=== PATIENT | male | born 1975 | race Caucasian/White ===

== ENCOUNTER 2021-08-22 11:09 | Emergency (ER) | payer MEDICAID, SELFPAY ==
[2021-08-22 11:09] VITALS: BP 146/96; PULSE 68; RESP 16; TEMP 37; O2SAT 97; BMI 25.4
--- NOTE | 2021-08-22 11:57 | HMH.EDUTC ---
[facility] [place] Disposition Clinical Impression: Pain, dental Disposition: Home, Self-Care Condition on Discharge: Good Instructions: DI for Chronic Pain -- Adult, DI for Dental Pain, Amoxicillin, Ibuprofen Additional Instructions: Make sure to follow up with Dentist tomorrow as scheduled Take medication as prescribed Follow up with Family Doctor if needed Return if needed straight to ER if any life threatening symptoms Prescriptions: Ibuprofen [Ibuprofen 600mg Tablet] 600 mg PO Q6HP PRN #20 tab PRN Reason: Moderate Pain Transmission Status[facility] Amoxicillin [Amoxicillin 500mg Cap] 500 mg PO TID #21 cap Transmission Status: Pending to [facility] Referrals: Provider,Referral, [Primary Care Provider] - Medical Decision Making - Av Inquiry Pt receiving controlled substance: No Av was queried for this patient: No Vital Signs: 08/22/21 11:09 Temperature 98.6 F Temperature Source Oral Pulse Rate [Right Radial] 68 Respiratory Rate 16 Blood Pressure [Right Arm] 146/96 H Blood Pressure Mean [Right Arm] 112 02 Sat by Pulse Oximetry 97 [facility] [place] HPI - General Stated complaint: rt side oral pain Time Seen by Provider: 08/22/21 11:57 Mode of Arrival: Ambulatory Source of Information: Patient Limitations: No Limitations Description of Symptoms (Recalled from Triage Doc. by RN): C/O toothache x3 days HEENT Symptoms (Recalled from RN notes): Yes (toothache) Resp Symptoms (Recalled from RN notes): No Skin Symptoms (Recalled from RN notes): No MS Symptoms (Recalled from RN notes): No Functional Status (Recalled from RN notes): n/a - History of Present Illness Provider Complaint: Patient states that he has been having dental pain and swelling in his right upper gum area States that he has appointment with Dentist tomorrow but pain is worse today and he had to come in and get something to help get him through - Related Data Previous Rx's Medication Instructions Recorded sulfamethoxazole 800 1 tab PO Q12H 10 Days #20 tab 12/18/20 mg-trimethoprim 160 mg tablet Amoxicillin [Amoxicillin 500mg 500 mg PO TID #21 cap 08/22/21 Cap] Ibuprofen [Ibuprofen 600mg 600 mg PO Q6HP PRN #20 tab 08/22/21 Tablet] Allergies Allergy/AdvReac Type Severity Reaction Status Date / Time No Known Allergies Allergy Verified 12/18/20 15:07 - Worker's Comp Is this a Worker's Comp case?: No [facility] History - Hepatitis A Screen Drug use history?: No High risk sexual behaviors?: No History of sexually transmitted infection?: No Currently employed?: No Childcare worker?: No Do you have indoor plumbing?: Yes Do you have electricity?: Yes Attestation statement:: This patient has been screened for Hepatitis A risk factors. I have reviewed the patient's past medical history: Yes Other Surgeries: Yes: No Previous Surgery - Social History Smoking Status: Never smoker Alcohol Intake: never Substance Use Type: denies use Occupational Status: unemployed Housing: house Household Members: family Family Hx:: Cancer ROS Obtained: Yes All systems reviewed & no additional complaints, Yes Systems reviewed as appropriate & no additional complaints - Constitutional Constitutional: Reports system reviewed and no additional complaints, except as docu, Denies body ache, Denies chills, Denies fever(s) - ENT Ears, Nose, Mouth, and Throat: Reports system reviewed and no additional complaints, except as docu, Reports dental pain - Cardiovascular Cardiovascular: Reports system reviewed and no additional complaints, except as docu - Respiratory Respiratory: Reports system reviewed and no additional complaints, except as docu - Gastrointestinal Gastrointestingal: Reports: system reviewed and no additional complaints, except as docu Physical Exam - General General appearance: alert, in no apparent distress - Expanded ENT Exam Teeth exam: Present: dental caries, oth
[2021-08-22 12:08] VITALS: BP 146/96; PULSE 68; RESP 16; TEMP 37; O2SAT 97
== END 2021-08-22 12:09 | disposition home or self-care (01) ==
PROVIDERS: Emergency Provider Nurse Practitioner
DX: K02.9 Dental caries, unspecified (principal); K08.89 Other specified disorders of teeth and supporting structures
CPT/HCPCS: 99202; G0463

== ENCOUNTER 2021-12-29 10:48 | Emergency (ER) | payer MEDICAID, SELFPAY ==
[2021-12-29 11:45] VITALS: BP 113/76; PULSE 103; RESP 16; TEMP 36.8; O2SAT 98; BMI 28.2
--- NOTE | 2021-12-29 12:04 | HMH.EDUTC ---
[facility] [place] Disposition Clinical Impression: Dental abscess, Pain, dental, Jaw pain Disposition: Home, Self-Care Condition on Discharge: Good Instructions: Tooth Abscess, DI for Tooth Abscess Additional Instructions: Drink plenty of fluids. Take the ibuprofen for pain. Take the medications as directed. Follow up with your regular doctor. You have to follow up with your dentist to get this completely resolved. GO TO THE ER FOR ANY WORSENING SYMPTOMS Prescriptions: Ibuprofen [Ibuprofen 800mg Tablet] 800 mg PO Q8HP PRN #30 tab PRN Reason: Moderate Pain Transmission Status: Received by [facility] Amoxicillin/Potassium Clav [Augmentin 875-125 Tablet] 1 tab PO Q12H 10 Days #20 tab Transmission Status: Received by [facility] Referrals: Teetee Downs PA [Primary Care Provider] - Time of Disposition: 12:21 Medical Decision Making - Medical Records Medical records reviewed: No: I reviewed the patient's medical records. - Av Inquiry Pt receiving controlled substance: No Vital Signs: 12/29/21 11:45 Temperature 98.3 F Temperature Source Oral Pulse Rate [Left] 103 H Respiratory Rate 16 Blood Pressure [Right Arm] 113/76 Blood Pressure Mean [Right Arm] 88 02 Sat by Pulse Oximetry 98 Orders (Tests/Meds): ED MEDICATIONS Discontinued Medications Generic Name Dose Route Start Last Admin Trade Name Freq PRN Reason Stop Dose Admin Benzocaine/Butamben/Tetracaine HCl 0 gm 12/29/21 13:05 12/29/21 13:03 Tetracaine/Benzocaine/Butamben 56 Gm [place] TP 12/29/21 13:06 25 gm NEEDED ONE Administration Ceftriaxone Sodium 1 gm 12/29/21 12:16 12/29/21 13:01 Ceftriaxone 1gm Vial IM 12/29/21 12:17 1 gm ONCE ONE Administration Lidocaine HCl 0 ml 12/29/21 12:16 12/29/21 13:02 Lidocaine 1% 5ml Pf Vial IM 12/29/21 12:17 2 ml ONCE ONE Administration Lidocaine HCl 15 ml 12/29/21 13:02 12/29/21 13:04 Lidocaine 2% Viscous Patricia 15ml Udc PO 12/29/21 13:03 15 ml ONCE ONE Administration [facility] [place] HPI - General Stated complaint: oral pain Time Seen by Provider: 12/29/21 12:04 Mode of Arrival: Ambulatory Source of Information: Patient Limitations: No Limitations Description of Symptoms (Recalled from Triage Doc. by RN): pt c/o an abcessed tooth on his upper L jaw. pain started 3-4 days ago. HEENT Symptoms (Recalled from RN notes): Yes Resp Symptoms (Recalled from RN notes): No Skin Symptoms (Recalled from RN notes): No MS Symptoms (Recalled from RN notes): No Functional Status (Recalled from RN notes): wnl - History of Present Illness Provider Complaint: He states that he has had left upper jaw dental pain for the past 4 days. He has an appointment with his dentist, but he is having worsening pain and swelling around the tooth. He denies any fever or chills. - Related Data Previous Rx's Medication Instructions Recorded sulfamethoxazole 800 1 tab PO Q12H 10 Days #20 tab 12/18/20 mg-trimethoprim 160 mg tablet Amoxicillin [Amoxicillin 500mg 500 mg PO TID #21 cap 08/22/21 Cap] Ibuprofen [Ibuprofen 600mg 600 mg PO Q6HP PRN #20 tab 08/22/21 Tablet] Amoxicillin/Potassium Clav 1 tab PO Q12H 10 Days #20 tab 12/29/21 [Augmentin 875-125 Tablet] Ibuprofen [Ibuprofen 800mg 800 mg PO Q8HP PRN #30 tab 12/29/21 Tablet] Allergies Allergy/AdvReac Type Severity Reaction Status Date / Time No Known Allergies Allergy Verified 12/18/20 15:07 - Worker's Comp Is this a Worker's Comp case?: No [facility] History - Hepatitis A Screen Drug use history?: No High risk sexual behaviors?: No History of sexually transmitted infection?: No Currently employed?: No Childcare worker?: No Do you have indoor plumbing?: Yes Do you have electricity?: Yes Attestation statement:: This patient has been screened for Hepatitis A risk factors. I have reviewed the patient's past medical history: Yes Other Surgeries: Yes: No
[2021-12-29 13:52] VITALS: BP 113/76; PULSE 103; RESP 16; TEMP 36.8
== END 2021-12-29 13:52 | disposition home or self-care (01) ==
PROVIDERS: Emergency Provider Nurse Practitioner Family; PCP Physician Assistant
DX: K04.7 Periapical abscess without sinus (principal)
CPT/HCPCS: 96372; 99202; G0463; J0696

== ENCOUNTER 2023-02-19 19:55 | Emergency (ER) | payer MEDICAID, SELFPAY ==
[2023-02-19 19:56] VITALS: BP 181/83; PULSE 114; RESP 23; TEMP 37.3; O2SAT 100; BMI 26.6
--- NOTE | 2023-02-19 19:56 | ECG_ITS ---
APPROVED REPORT Exam: Resting ECG HR:107 bpm ECG Measurements Heart Rate 107 AXES IA 161 P 67 QRSd 84 QRS 69 QT 323 T 58 QTc 386 Conclusion SINUS TACHYCARDIA ABNORMAL RHYTHM ECG UNCONFIRMED REPORT Electronically signed by : Chuck Macias MD 02/20/2023 17:02:08
--- NOTE | 2023-02-19 20:15 | XR_ITS ---
PROCEDURE INFORMATION: Exam: XR Chest Exam date and time: 02/19/2023 8:17 PM Age: 48 years old Clinical indication: Sternal or substernal pain; Additional info: Chest pain work up TECHNIQUE: Imaging protocol: Radiologic exam of the chest. Views: 2 views. COMPARISON: No relevant prior studies available. FINDINGS: Lungs: Unremarkable. No consolidation. Pleural spaces: Unremarkable. No pleural effusion. No pneumothorax. Heart/Mediastinum: Unremarkable. No cardiomegaly. Bones/joints: Unremarkable. IMPRESSION: No acute findings.
[2023-02-19 20:24] LABS: Chloride 104 mmol/L (98-107); Potassium 3.3 mmoL/L (3.5-5.1); Sodium 141 mmol/L (136-145)
[2023-02-19 20:26] LABS: Basophils # 0.1 K/mm3 (0-0.2); Bilirubin,Unconjugated 0.4 mg/dL (0.0-1.1); Blood Urea Nitrogen 20 mg/dl (9-20); Creatinine Clearance Estimated 79 mL/min (50-200); Eosinophils # 0.1 K/mm3 (0.0-0.4); Eosinophils % 2.1 % (0.1-12.0); Estimated Glomerular Filt Rate 65 ml/min (>60); GFR (African American) 79 ML/MIN (>60); Hematocrit 46.7 % (42.0-52.0); Hemoglobin 15.5 g/dL (14.1-18.0); Lymphocytes # 1.6 K/mm3 (0.7-4.5); Lymphocytes % 23.5 % (10-50); Mean Corpuscular HGB Conc 33.2 g/dL (31.8-35.4); Mean Corpuscular Hemoglobin 31.6 pg (27.0-31.2); Mean Corpuscular Volume 95.1 fl (80-94); Mean Platelet Volume 7.6 fl (7.4-10.4); Monocytes # 0.5 K/mm3 (0.1-1.0); Monocytes % 7.4 % (1.7-9.3); Neutrophils # 4.4 K/mm3 (1.8-7.8); Platelet Count 335 K/mm3 (142-424); Red Blood Count 4.91 M/mm3 (4.60-6.20); Red Cell Distribution Width 13.2 % (11.5-17.5); White Blood Count 6.6 K/mm3 (4.8-10.8)
--- NOTE | 2023-02-19 20:26 | PC.NURSE ---
Pt gone to RAD via wheelchair
[2023-02-19 20:27] LABS: Alanine Aminotransferase 28 U/L (12-78); Albumin Level 4.6 g/dl (3.5-5.0); Alkaline Phosphatase 85 U/L (38-126); Anion Gap 12.3 mEq/L (5-15); Aspartate Amino Transferase 38 U/L (17-59); Bilirubin,Direct 0.1 mg/dl (0.0-0.4); Bilirubin,Indirect 0.3 mg/dL (0.0-0.9); Bilirubin,Total 0.4 mg/dl (0.2-1.3); Calcium 8.7 mg/dl (8.4-10.2); Carbon Dioxide 28 mmol/L (22.0-30.0); Glucose 106 mg/dl (74-100); Total Protein,Serum 7.2 g/dl (6.3-8.2)
[2023-02-19 20:28] LABS: Magnesium 2.1 mg/dl (1.6-2.3)
--- NOTE | 2023-02-19 20:30 | PC.NURSE ---
Pt back from RAD
[2023-02-19 20:32] LABS: C-Reactive Protein 6.6 mg/L (0-4)
[2023-02-19 20:41] LABS: Troponin I < 0.01 ng/ml (0.00-0.034)
--- NOTE | 2023-02-19 20:44 | HMH.EDCP ---
Discharge Plan Disposition Patient Disposition: Home, Self-Care Chief Complaint: Chest Pain Prescriptions Prescriptions: No Action sulfamethoxazole-trimethoprim 800-160 mg tablet 1 tab PO Q12H 10 Days Qty: 20 0RF amoxicillin 500 MG capsule 500 mg PO TID Qty: 21 0RF ibuprofen 600 MG tablet 600 mg PO Q6HP PRN (Reason: Moderate Pain) Qty: 20 0RF ibuprofen 800 MG tablet 800 mg PO Q8HP PRN (Reason: Moderate Pain) Qty: 30 0RF amoxicillin-pot clavulanate 1 EACH tablet 1 tab PO Q12H 10 Days Qty: 20 0RF Referrals Follow up/Referrals: Teetee Downs PA [Primary Care Provider] - See instructions Clinical Impressions Clinical Impression: Cervical radicular pain Instructions Patient Instructions: DI for Cervical Radiculopathy Discharge ED Provider: Joseline (ED)Burton Chest Pain HPI General Chief Complaint: Chest Pain Stated Complaint: Chest Pain Time Seen by Provider: 02/19/23 20:44 Mode of Arrival: Family Vehicle Source of Information: Patient and Medical Record Limitations: No Limitations Description of Symptoms (Recalled from ER Triage Doc. by RN): Pt c/o L sided neck pain that radiates down his left arm. States it began last night while resting. 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 However, he began to be worried after he thought about how his friend because of a heart attack and had the same symtoms. His pain is reproducible when turning his neck far to the right. He denies any n/v/d. Denies any SOA or dyspnea. History of Present Illness HPI narrative: pt with lt sided neck pain with rad to scapular area and to lt upper ext - has had prev but worse over the last few days - no tob use and no diabetes - no known card disease MD complaint: other Onset (ago): day(s) Duration: intermittent Pain location: other (neck pain) Quality: sharp Pain radiation: LUE Risk Factors for CAD: Family Hx of CAD Treatments prior to or on arrival for Cardiac Chest Pain: none DOM Score for Non-Stemi Age of Patient: 40-49 years old Heart Rate: 90-109 bpm Systolic Blood Pressure: 100-119 mmHg Serum Creatinine: 1.20-1.59 mg/dl CHF [place] Class: I-No CHF Other Risk Factors: None Non-Stemi Risk Score: 93 Risk Stratification: 1-108 = Low Risk Related Data Previous Rx's Medication Instructions Recorded sulfamethoxazole 800 1 tab PO Q12H skin infection 10 12/18/20 mg-trimethoprim 160 mg tablet days #20 tabs amoxicillin 500 mg capsule 500 mg PO TID #21 caps 08/22/21 ibuprofen 600 mg tablet 600 mg PO Q6HP PRN Moderate Pain 08/22/21 #20 tabs amoxicillin 875 mg-potassium 1 tab PO Q12H 10 days #20 tabs 12/29/21 clavulanate 125 mg tablet ibuprofen 800 mg tablet 800 mg PO Q8HP PRN Moderate Pain 12/29/21 #30 tabs Allergies Allergy/AdvReac Type Severity Reaction Status Date / Time No Known Allergies Allergy Verified 12/18/20 15:07 [facility] Disclaimer: The information contained in this section may have been updated after the patient was seen, as this information can be updated by other users. Social History Smoking Status: Former smoker alcohol intake: never substance use type: denies use current occupational status: unemployed Travel in the last 8 weeks: None household members: family housing: house ROS Obtained: Yes All systems reviewed & no additional complaints except as documented Physical Exam General General appearance: alert Head Head exam: normocephalic Eye Eye exam: Present PERRL and EOMI ENT ENT exam: Present mucous membranes moist Neck Neck exam: Present trachea midline and tenderness; Absent lymphadenopathy Respiratory Respiratory exam: Absent respiratory distress Cardiovascular Cardiovascular exam: Present regular rate Abdominal Exam Abdominal exam: Present soft Extremities Exam Extremities exam: Present full ROM Neurological Exam Neurological exam: Present alert, oriented X3 and CN II-XII
[2023-02-19 20:52] LABS: Erythrocyte Sedimentation Rate 9 mm/hr (0-15)
[2023-02-19 21:00] VITALS: BP 118/78; PULSE 96; RESP 15; O2SAT 96
--- NOTE | 2023-02-19 21:13 | PC.NURSE ---
Rounded on pt. Pt advised his pain was still a 05/25. RN notified.
--- NOTE | 2023-02-19 21:20 | PC.NURSE ---
Dr. Trevizo at
[2023-02-19 21:24] VITALS: BP 120/80; PULSE 89; RESP 18; TEMP 36.6; O2SAT 98
[2023-02-19 22:02] LABS: Procalcitonin 0.065 ng/mL (0.0-2.0)
== END 2023-02-19 21:30 | disposition home or self-care (01) ==
PROVIDERS: Emergency Provider Emergency Medicine; PCP Physician Assistant
DX: R07.9 Chest pain, unspecified (principal); M54.12 Radiculopathy, cervical region
CPT/HCPCS: 71046; 80048; 80076; 83735; 84145; 84484; 85025; 85651; 86140; 93005; 96360; 96374; 99285

== ENCOUNTER 2023-04-13 08:59 | Emergency (ER) | payer MEDICAID, SELFPAY ==
--- NOTE | 2023-04-13 09:51 | EXP.UTC ---
Discharge Plan Disposition Patient Disposition: Home, Self-Care Condition: Good Prescriptions Prescriptions: New ciprofloxacin HCl 0.3 % drops See Rx Instructions .ROUTE .COMPLEX Qty: 5 0RF Rx Instructions: put 1 drp in left eye every 2hr x2days; then 4 times/day x5days Referrals Follow up/Referrals: Teetee Downs PA [Primary Care Provider] - See instructions Activity Restrictions/Add. Instructions Additional Instructions/Restrictions: Use the eye drops as directed. Apply warm wet compresses three or four times per day. Follow up with your regular doctor. GO TO THE ER FOR ANY WORSENING SYMPTOMS OR CONCERNS Clinical Impressions Clinical Impression: Hordeolum externum left upper eyelid Instructions Patient Instructions: How to Instill Eye Drops, Hordeolum, DI for Hordeolum Discharge ED Provider: Iker Harper Fern [facility] HPI General Stated complaint: Possible LT eye stye Time Seen by Provider: 04/13/23 09:51 History of Present Illness Provider Complaint: he states that he has had left eye upper eye lid swelling for the past 2 days. He denies any injury or foreign body. Related Data Previous Rx's Medication Instructions Recorded ciprofloxacin HCl 0.3 % eye drops See Rx Instructions ophthalmic 04/13/23 (eye) .COMPLEX #5 mL Allergies Allergy/AdvReac Type Severity Reaction Status Date / Time No Known Allergies Allergy Verified 04/13/23 10:00 [facility] Disclaimer: The information contained in this section may have been updated after the patient was seen, as this information can be updated by other users. Medical History No significant past medical history Surgical History No significant past surgical history Family History Other No significant family history Social History Smoking Status: Former smoker alcohol intake: never substance use type: denies use current occupational status: unemployed Travel in the last 8 weeks: None household members: family housing: house ROS Obtained: Yes All systems reviewed & no additional complaints except as documented Constitutional Constitutional: Denies chills and Denies fever(s) Eyes Eyes: Reports as per HPI, Denies change in vision and Reports eye discharge ENT Ears, Nose, Mouth, and Throat: Denies dizziness, Denies otalgia and Denies sore throat Cardiovascular Cardiovascular: Denies chest pain Respiratory Respiratory: Denies shortness of breath, Denies chest congestion, Denies cough, Denies stridor and Denies wheezing Gastrointestinal Gastrointestingal: Denies nausea or vomiting Musculoskeletal Musculoskeletal: Reports system reviewed and no additional complaints, except as documented and Denies arthralgias Integumentary/Breasts Skin/Breast: Denies rash Neurologic Neurologic: Denies dizziness and Denies paresthesias Allergic/Immunologic Allergic/Immunologic: Denies wheezing Physical Exam General General appearance: alert and in no apparent distress Head Head exam: atraumatic, normocephalic and normal inspection Eye Eye exam: Present PERRL and EOMI Expanded Eye Exam Eyelids: left: erythema and right: normal inspection Pupils: Left: size (3), Right: size (3) and Bilateral: regular, round and reactive Sclera/Conjunctival: left: injection and exudate and right: normal inspection ENT ENT exam: Present normal exam, normal oropharynx, mucous membranes moist, TM's normal bilaterally and normal external ear exam Neck Neck exam: Present normal inspection, full ROM and trachea midline; Absent meningismus or lymphadenopathy Chest Chest inspection: Present normal inspection and symmetric chest wall rise; Absent tenderness Respiratory Respiratory exam: Present normal lung sounds bilaterally; Absent respirator
[2023-04-13 10:00] VITALS: BP 140/87; PULSE 89; RESP 16; TEMP 36.6; O2SAT 99; BMI 25.7
[2023-04-13 10:05] VITALS: BP 140/87; PULSE 89; RESP 16; TEMP 36.6; O2SAT 99
== END 2023-04-13 10:09 | disposition home or self-care (01) ==
PROVIDERS: Emergency Provider Nurse Practitioner Family; PCP Physician Assistant
DX: H00.014 Hordeolum externum left upper eyelid (principal); Z87.891 Personal history of nicotine dependence
CPT/HCPCS: 99212; 99214; G0463

== ENCOUNTER 2024-01-14 15:10 | Emergency (ER) | payer MEDICAID, SELFPAY ==
[2024-01-14 16:00] VITALS: BP 155/96; PULSE 101; RESP 18; TEMP 36.5; O2SAT 95; BMI 26.6
--- NOTE | 2024-01-14 16:09 | ED_ITS ---
Discharge Plan Disposition Patient Disposition: Home, Self-Care Condition: Good Prescriptions Prescriptions: New ibuprofen [IBU] 800 mg tablet 800 mg PO Q8HP PRN (Reason: Moderate Pain) Qty: 30 0RF amoxicillin-pot clavulanate 875-125 mg Tablet 1 tab PO Q12H Qty: 20 0RF Referrals Follow up/Referrals: Teetee Downs PA [Primary Care Provider] - See instructions Activity Restrictions/Add. Instructions Additional Instructions/Restrictions: Take tylenol or ibuprofen for pain. I sent in a prescription for Ibuprofen 800 mg tablets. Take the medications as directed. Follow up with your regular doctor. Follow up with your dentist as soon as you can get in with them. GO TO THE ER FOR ANY WORSENING SYMPTOMS Clinical Impressions Clinical Impression: Pain, dental, Abscess, dental, Jaw pain Instructions Patient Instructions: DI for Tooth Abscess, DI for Dental Pain Discharge ED Provider: Iker Harper Fern [facility] General Stated complaint: dental pain Time Seen by Provider: 01/14/24 16:09 History of Present Illness Provider Complaint: He states that he has several broken decayed teeth in his left upper jaw. Over the past 5 days he had worsening dental pain and swelling of the gums around this teeth. Related Data Previous Rx's Medication Instructions Recorded amoxicillin 875 mg-potassium 1 tab PO Q12H #20 tabs 01/14/24 clavulanate 125 mg tablet ibuprofen 800 mg tablet (IBU) 800 mg PO Q8HP PRN Moderate Pain 01/14/24 #30 tabs Allergies Allergy/AdvReac Type Severity Reaction Status Date / Time No Known Allergies Allergy Verified 01/14/24 16:17 [facility] Disclaimer: The information contained in this section may have been updated after the patient was seen, as this information can be updated by other users. Medical History No significant past medical history Surgical History No significant past surgical history Family History Other No significant family history Social History Smoking Status: Former smoker alcohol intake: never substance use type: denies use current occupational status: unemployed Travel in the last 8 weeks: None household members: family housing: house ROS Obtained: Yes All systems reviewed & no additional complaints except as documented Constitutional Constitutional: Denies chills and Denies fever(s) Eyes Eyes: Denies eye discharge ENT Ears, Nose, Mouth, and Throat: Reports as per HPI, Denies dizziness, Denies otalgia and Denies sore throat Cardiovascular Cardiovascular: Denies chest pain Respiratory Respiratory: Denies shortness of breath, Denies chest congestion, Denies cough, Denies stridor and Denies wheezing Gastrointestinal Gastrointestingal: Denies nausea or vomiting Musculoskeletal Musculoskeletal: Reports system reviewed and no additional complaints, except as documented and Denies arthralgias Integumentary/Breasts Skin/Breast: Denies rash Neurologic Neurologic: Denies dizziness and Denies paresthesias Allergic/Immunologic Allergic/Immunologic: Denies wheezing Physical Exam General General appearance: alert and in no apparent distress Head Head exam: atraumatic, normocephalic and normal inspection Eye Eye exam: Present normal appearance, PERRL and EOMI ENT ENT exam: Present mucous membranes moist, TM's normal bilaterally and normal external ear exam Expanded ENT Exam Nose exam: Absent sinus tenderness Nasal speculum exam: Bilateral: normal Mouth exam: Present normal external inspection; Absent drooling or tongue swelling Teeth exam: Present dental caries, fractured tooth #, dental tenderness # and gingival swelling; Absent normal inspection Throat exam: Present normal inspection Neck Neck exam: Present normal inspection, full ROM and trachea midline; Absent meningismus or lymphadenopathy Chest Chest inspection: Present normal inspection and symmetric chest wall rise; Absent tenderness Respiratory Respiratory exam: Present normal lung sounds bilaterally; Absent respiratory distress Cardiovascular Cardiovascular exam: Present regular rate and normal rhythm; Absent JVD Abdominal Exam Abdominal exam: Present soft and normal bowel sounds; Absent distention, tenderness or guarding Extremities Exam Extremities exam: Present normal inspection, full ROM and normal capillary refill; Absent calf tenderness Back Exam Back exam: Present normal inspection; Absent tenderness Neurological Exam Neurological exam: Present alert and oriented X3 Psychiatric Psychiatric exam: Present normal affect and normal mood Skin Skin exam: Present warm, dry, intact and normal color Lymphatic Lymphatic Findings: no adenopathy Medical Decision Making Medical Records Medical records reviewed: No I reviewed the patient's medical records. Av Inquiry Pt receiving controlled substance: No
[2024-01-14 16:45] VITALS: BP 155/96; PULSE 101; RESP 18; TEMP 36.5; O2SAT 95
== END 2024-01-14 16:45 | disposition home or self-care (01) ==
PROVIDERS: Emergency Provider Nurse Practitioner Family; PCP Physician Assistant
DX: R68.84 Jaw pain (principal); K04.7 Periapical abscess without sinus; R22.0 Localized swelling, mass and lump, head; Z87.891 Personal history of nicotine dependence
CPT/HCPCS: 99212; 99214; G0463

== ENCOUNTER 2025-02-12 10:11 | Emergency (ER) | payer MEDICAID, SELFPAY ==
[2025-02-12] VITALS (7 sets, daily range): BP systolic 120–146; BP diastolic 83–97; PULSE 71–102; RESP 14–19; TEMP 36.7–37; O2SAT 94–98; BMI 25.8
--- NOTE | 2025-02-12 10:15 | ECG_ITS ---
APPROVED REPORT Exam: Resting ECG HR:90 bpm ECG Measurements Heart Rate 90 AXES TN 172 P 64 QRSd 86 QRS 62 QT 356 T 58 QTc 404 Conclusion SINUS RHYTHM NORMAL ECG Electronically signed by : JERMAINE OROZCO, 02/13/2025 00:26:06
--- NOTE | 2025-02-12 10:40 | XR_ITS ---
PROCEDURE INFORMATION: Exam: XR Chest Exam date and time: 02/12/2025 10:48 AM Age: 50 years old Clinical indication: Pain; Other: Chest pressure 0430 am TECHNIQUE: Imaging protocol: Radiologic exam of the chest. Views: 1 view. Total images: 1 COMPARISON: CR XR CHEST 2V 02/19/2023 8:17 PM FINDINGS: Lungs: Atelectatic changes within both lung bases without pneumonia. Pleural spaces: Unremarkable. No pleural effusion. No pneumothorax. Heart/Mediastinum: Unremarkable. No cardiomegaly. Bones/joints: Unremarkable. IMPRESSION: Atelectatic changes within both lung bases without pneumonia.
[2025-02-12 10:46] LABS: Basophils # 0.1 K/mm3 (0-0.2); Basophils % 0.6 % (0.1-2.0); Eosinophils % 0.4 % (0.1-12.0); Hematocrit 44.3 % (42.0-52.0); Hemoglobin 15.7 g/dL (14.1-18.0); Lymphocytes # 1.2 K/mm3 (0.7-4.5); Lymphocytes % 14.7 % (10-50); Mean Corpuscular HGB Conc 35.4 g/dL (31.8-35.4); Mean Corpuscular Hemoglobin 32.4 pg (27.0-31.2); Mean Corpuscular Volume 91.3 fl (80-94); Mean Platelet Volume 9.2 fl (7.4-10.4); Monocytes # 0.5 K/mm3 (0.1-1.0); Monocytes % 5.6 % (1.7-9.3); Neutrophils # 6.4 K/mm3 (1.8-7.8); Neutrophils % 78.5 % (37.0-80.0); Platelet Count 278 K/mm3 (142-424); Red Blood Count 4.85 M/mm3 (4.60-6.20); Red Cell Distribution Width 12.1 % (11.5-17.5); White Blood Count 8.2 K/mm3 (4.8-10.8)
--- NOTE | 2025-02-12 10:46 | HMH.EDGENADL ---
Discharge Plan Disposition Patient Disposition: Home, Self-Care Prescriptions Prescriptions: No Action No Known Home Medications Referrals Follow up/Referrals: Jorge Alberto Gan MD [Staff Physician] - See instructions Provider,MD Rahel [Primary Care Provider] - See instructions Activity Restrictions/Add. Instructions Additional Instructions/Restrictions: Be sure to eat breakfast when having multiple cups of coffee. Return to the emergency department for development of chest pain trouble breathing or heart palpitations in the future. Schedule appointment with a primary care doctor of your choosing. You have been referred to 1 through [facility]. Is important to follow-up with your primary care provider for routine health screenings. Clinical Impressions Clinical Impression: Intermittent lightheadedness Print Language Print Language: Estonian Discharge ED Provider: Nanda Zacarias General Adult HPI General Chief complaint: Chest Pain Stated complaint: cp Time Seen by Provider: 02/12/25 10:46 Mode of Arrival: Ambulatory Source of Information: Patient Description of Symptoms (Recalled from ER Triage Doc. by RN): pt presents to ED with c/o chest pressure, shortness of air, difficulty taking a deep breath, dizziness. pt reports he awoke with symptoms this am, symptoms have gotten worse while at work today. History of Present Illness HPI narrative: Patient is a 50-year-old with no past medical history presents emergency department with lightheadedness. 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 The symptoms are now resolved here in the emergency department. Patient had 3 cups of coffee this morning however did not eat anything. Patient has never had the symptoms in the past. Significant other does note that he was snoring overnight however no other symptoms prior to at work. No nausea vomiting cough. Related Data Home Medications ?Medication ?Instructions ?Recorded ?Confirmed No Known Home Medications 02/12/25 02/12/25 Allergies Allergy/AdvReac Type Severity Reaction Status Date / Time No Known Allergies Allergy Verified 01/14/24 16:17 [facility] Disclaimer: The information contained in this section may have been updated after the patient was seen, as this information can be updated by other users. Medical History No significant past medical history Surgical History No significant past surgical history Family History Other No significant family history Social History Smoking Status: Current every day smoker alcohol intake: never substance use type: denies use current occupational status: unemployed Travel in the last 8 weeks: None household members: family housing: house Have you lived/traveled outside US in past 30 days?: No Contact w/someone who lives/traveled outside US past 30 days?: No Exposure to someone with infectious disease in past 14 days?: No Do you have a fever (greater than 100.4 F or 38 C)?: No Have you tested positive for COVID-19: No Exposed to someone with COVID-19 in past 14 days?: No Do you have a sore throat?: No Do you have a cough?: No Do you have any weakness?: No Do you have any diarrhea?: No Are you experiencing any unusual bleeding?: No Do you have any muscle aches/pain?: No Do you have any abdominal pain?: No Are you experiencing loss of taste or smell?: No Other Medical History Have you received the Pneumonia Vaccine: No ROS Obtained: Yes All systems reviewed & no additional complaints except as documented Physical Exam General General appearance: alert, in no apparent distress and in distress Respiratory Respiratory exam: Present normal lung sounds bilaterally; Absent respiratory distress Cardiovascular Cardiovascular exam: Present regular rate and normal rhythm Abdominal Exam Abdominal exam: Present soft; Absent tenderness Neurological Exam Neurological exam: Present alert and oriented X3 Skin Skin exam: Present warm and dry Medical Decision Making Medical Records Screening: Per USPSTF and CDC recommendations, given the prevalence of disease in our region, it is our hospital?s policy to screen for HIV and viral Hepatitis for all patients aged 18 and over and those with ongoing risk factors. Av Inquiry Pt receiving controlled substance: No Vital Signs: 02/12/25 10:17 02/12/25 10:30 02/12/25 11:00 Temperature 98.6 F Temperature Source Oral Pulse Rate 85 85 Pulse Rate [Left Radial] 102 H Respiratory Rate 19 18 18 Blood Pressure 126/86 129/87 Blood Pressure [Right Arm] 146/97 H Blood Pressure Mean 99 93 Blood Pressure Mean [Right Arm] 113 02 Sat by Pulse Oximetry 96 96 95 Oxygen Delivery Method Room Air 02/12/25 11:30 02/12/25 12:00 Temperature Temperature Source Pulse Rate 71 77 Pulse Rate [Left Radial] Respiratory Rate 14 19 Blood Pressure 127/85 122/83 Blood Pressure [Right Arm] Blood Pressure Mean Blood Pressure Mean [Right Arm] 02 Sat by Pulse Oximetry 94 L 96 Oxygen Delivery Method Room Air Room Air Lab Data Lab Results 02/12/25 10:15: WBC 8.2, RBC 4.85, Hgb 15.7, Hct 44.3, MCV 91.3, MCH 32.4 H, MCHC 35.4, RDW 12.1, Plt Count 278, MPV 9.2, Neut % (Auto) 78.5, Lymph % (Auto) 14.7, [place] % (Auto) 5.6, Eos % (Auto) 0.4, Baso % (Auto) 0.6, Neut # (Auto) 6.4, Lymph # (Auto) 1.2, [place] # (Auto) 0.5, Eos # (Auto) 0.0, Baso # (Auto) 0.1, Sodium 139, Potassium 3.9, Chloride 105, Carbon Dioxide 27, Anion Gap 10.9, BUN 15, Creatinine 1.10, Estimated Creat Clear 84, Estimated GFR 71, Est GFR ( Amer) 86, Glucose 116 H, Calcium 9.3, Total Bilirubin 0.6, AST 30, ALT 29, Alkaline Phosphatase 72, Troponin I < 0.01, Total Protein 6.9, Albumin 4.2, Globulin 2.7, Albumin/Globulin Ratio 1.6, HCV Ab SHANAE w/Rflx PCR Qn Negative, HIV Ag/Ab Combo Qual Negative 02/12/25 10:15 02/12/25 10:15 Orders (Tests/Meds): ORDERS Category Date Time Status XR chest portable Stat Exams 02/12/25 10:40 Completed Complete Blood Count Auto Diff Stat Lab 02/12/25 10:15 Completed Comprehensive Metabolic Panel Stat Lab 02/12/25 10:15 Completed HIV Combo Stat Lab 02/12/25 10:15 Completed Hepatitis C Ab Qual. W/ RFX Stat Lab 02/12/25 10:15 Completed Troponin I Q3H Lab 02/12/25 13:45 Ordered Troponin I Q3H Lab 02/12/25 16:45 Ordered Troponin I Stat Lab 02/12/25 10:15 Completed HEART Score History (anamnesis): Slightly suspicious ECG: Normal Age: 45-65 years Risk factors: No known risk factors Troponin: </= normal limit HEART Score: 1 Medical Decision Narrative: In summary, this 50-year-old male presents to the emergency department today with lightheadedness. On initial evaluation patient is hemodynamically stable saturating properly on room air afebrile no acute. Differential diagnosis includes but is not limited to hypoglycemia, arrhythmia, vasovagal syncope, ACS PE, caffeine overdose. Based on these concerns, I ordered CBC CMP EKG troponins. ECG personally interpreted demonstrates normal sinus rhythm no ST elevation ST depression or T wave inversions concerning for ischemia. Labs personally reviewed demonstrate no leukocytosis no anemia normal troponin. XR personally interpreted demonstrates no focal consolidation or pneumothorax. On reassessment patient remains to be asymptomatic at this time. Patient does not have a primary care provider. Patient given referral for primary care at this time symptoms are most likely consistent with excess use of caffeine without eating and exerting himself while at work but recommended following with primary care for routine screening for hypertension hyperlipidemia and diabetes for risk factors for atherosclerotic disease Of note, social determinants of health include lack of primary care Critical Care Critical Care Time Critical Care Time: No
[2025-02-12 10:51] LABS: Alanine Aminotransferase 29 U/L (12-78); Albumin Level 4.2 g/dl (3.5-5.0); Albumin/Globulin Ratio 1.6 (1.1-1.8); Alkaline Phosphatase 72 U/L (38-126); Anion Gap 10.9 mEq/L (5-15); Aspartate Amino Transferase 30 U/L (17-59); Bilirubin,Total 0.6 mg/dl (0.2-1.3); Blood Urea Nitrogen 15 mg/dl (9-20); Calcium 9.3 mg/dl (8.4-10.2); Carbon Dioxide 27 mmol/L (22.0-30.0); Chloride 105 mmol/L (98-107); Creatinine Clearance Estimated 84 mL/min (50-200); Estimated Glomerular Filt Rate 71 ml/min (>60); GFR (African American) 86 ML/MIN (>60); Globulin 2.7 g/dL (1.3-3.2); Glucose 116 mg/dl (74-100); Potassium 3.9 mmoL/L (3.5-5.1); Sodium 139 mmol/L (136-145); Total Protein,Serum 6.9 g/dl (6.3-8.2)
[2025-02-12 11:36] LABS: HIV Combo NEGATIVE (Negative)
[2025-02-12 11:43] LABS: Hepatitis C Ab Qual. W/ RFX NEGATIVE (Negative)
[2025-02-12 12:14] LABS: Troponin I < 0.01 ng/ml (0.00-0.034)
== END 2025-02-12 12:44 | disposition home or self-care (01) ==
PROVIDERS: Emergency Provider Student in an Organized Health Care Education/Training Program
DX: R42 Dizziness and giddiness (principal); R07.9 Chest pain, unspecified; R06.02 Shortness of breath; Z72.0 Tobacco use
CPT/HCPCS: 71045; 80053; 84484; 85025; 86803; 87389; 93005; 99283

== ENCOUNTER 2025-06-08 15:08 | Emergency (ER) | payer MEDICAID, SELFPAY ==
[2025-06-08] VITALS (7 sets, daily range): BP systolic 134–151; BP diastolic 93–105; PULSE 73–85; RESP 12–23; TEMP 36.6; O2SAT 98; BMI 27.1
--- NOTE | 2025-06-08 15:13 | ECG_ITS ---
APPROVED REPORT Exam: Resting ECG HR:70 bpm ECG Measurements Heart Rate 70 AXES [place] 165 P 71 QRSd 86 QRS 72 QT 379 T 68 QTc 400 Conclusion SINUS RHYTHM RIGHT ATRIAL ENLARGEMENT [0.3mV P-WAVE] MINIMAL ST DEPRESSION [0.025+ mV ST DEPRESSION] ABNORMAL ECG UNCONFIRMED REPORT Electronically signed by : LEROY GARCIA, 06/09/2025 01:04:40
[2025-06-08] MEDS: droPERidol 5MG/2ML VIAL 2.5 MG IV (15:28)
--- NOTE | 2025-06-08 15:30 | HMH.EDGENADL ---
Discharge Plan Disposition Chief Complaint: Nausea/Vomiting/Diarrhea Prescriptions Prescriptions: No Action amoxicillin-pot clavulanate 875-125 mg tablet 1 tab PO Q12H 10 Days Qty: 20 0RF ibuprofen 800 mg tablet 800 mg PO TID Qty: 30 0RF Referrals Follow up/Referrals: Provider,Referral, [Primary Care Provider, Medical] - See instructions Instructions Patient Instructions: DI for Diarrhea and Traveler's Diarrhea -- Adult, DI for Diarrhea and Traveler's Diarrhea -- Child, DI for Nausea -- Adult, DI for Nausea -- Child Print Language Print Language: Maori Discharge ED Provider: Naun Hollingsworth General Adult HPI General Chief complaint: Nausea/Vomiting/Diarrhea Stated complaint: nausea, vomiting Time Seen by Provider: 06/08/25 15:11 Mode of Arrival: Ambulatory Source of Information: Patient and Relative Description of Symptoms (Recalled from ER Triage Doc. by RN): Patient presents to ED for vomiting x 2 hours, some SOA, states he has been fighting an abscess tooth for approx. 2-3 weeks. Started abx yesterday. History of Present Illness HPI narrative: This is a 50-year-old male patient, with no past medical history and no chronic daily medications, who is presenting to the emergency department today for evaluation of intractable nausea and vomiting. The patient states that 3 weeks ago he was diagnosed with a periapical abscess and was started on amoxicillin and referred to dentistry. He has struggled to get in with dentistry since that time. He has continued to have some pain in the tooth without resolution of symptoms. Therefore, returned to his primary care physician and was prescribed Augmentin which he started last night. He took 1 dose of Augmentin yesterday evening and again this morning and he states that around 11 AM he began experiencing severe nausea and vomiting. He is not experiencing abdominal pain. No hematemesis. He is not experiencing any blood in the stool. No diarrhea. He does tell me that he smokes marijuana on a daily basis. Since the onset of his symptoms he has experience of numbness and tingling in his left arm. He has not had any fevers. No history of alcohol use or IV drug use. Related Data Previous Rx's ?Medication ?Instructions ?Recorded amoxicillin 875 mg-potassium 1 tab PO Q12H 10 days #20 tabs 06/07/25 clavulanate 125 mg tablet ibuprofen 800 mg tablet 800 mg PO TID #30 tabs 06/07/25 Allergies Allergy/AdvReac Type Severity Reaction Status Date / Time No Known Allergies Allergy Verified 06/07/25 10:00 [facility] Disclaimer: The information contained in this section may have been updated after the patient was seen, as this information can be updated by other users. Medical History No significant past medical history Surgical History No significant past surgical history Family History Other No significant family history Social History Smoking Status: Current every day smoker alcohol intake: never substance use type: denies use current occupational status: unemployed Travel in the last 8 weeks?: None household members: family housing: house Have you lived/traveled outside US in past 30 days?: No Contact w/someone who lives/traveled outside US past 30 days?: No Exposure to someone with infectious disease in past 14 days?: No Do you have a fever (greater than 100.4 F or 38 C)?: No Have you tested positive for COVID-19?: No Exposed to someone with COVID-19 in past 14 days?: No Do you have a sore throat?: No Do you have a cough?: No Do you have any weakness?: No Do you have any diarrhea?: No Are you experiencing any unusual bleeding?: No Do you have any muscle aches/pain?: No Do you have any abdominal pain?: No Are you experiencing loss of taste or smell?: No Other Medical History Have you received the Pneumonia Vaccine: No ROS Obtained: Yes Systems reviewed as appropriate & no additional complaints except as documented Physical Exam General General appearance: alert Head Head exam: atraumatic and normocephalic Eye Eye exam: Present normal appearance and PERRL ENT ENT exam: Present normal exam, normal oropharynx and other (On dental examination the patient does have a periapical abscess along the most posterior mandibular molar on the left with fluctuance along the gumline) Neck Neck exam: Present normal inspection and full ROM Chest Chest inspection: Present normal inspection and symmetric chest wall rise Respiratory Respiratory exam: Present normal lung sounds bilaterally; Absent respiratory distress Cardiovascular Cardiovascular exam: Present regular rate and normal rhythm Abdominal Exam Abdominal exam: Present soft; Absent distention or tenderness Neurological Exam Neurological exam: Present alert and oriented X3 Medical Decision Making Medical Records Medical records reviewed: Yes I reviewed the patient's medical records. Screening: Per USPSTF and CDC recommendations, given the prevalence of disease in our region, it is our hospital?s policy to screen for HIV and viral Hepatitis for all patients aged 18 and over and those with ongoing risk factors. Va Inquiry Pt receiving controlled substance: No Av was queried for this patient: No Vital Signs: 06/08/25 15:13 06/08/25 15:13 06/08/25 15:31 Temperature 98 F 98 F Temperature Source Oral Oral Pulse Rate 85 Pulse Rate [Right] 85 Respiratory Rate 18 18 12 Blood Pressure 140/93 H 134/97 H Blood Pressure [Right Arm] 140/93 H Blood Pressure Mean [Right Arm] 108 02 Sat by Pulse Oximetry 98 98 Oxygen Delivery Method Room Air Room Air 06/08/25 16:00 06/08/25 16:30 06/08/25 17:00 Temperature Temperature Source Pulse Rate Pulse Rate [Right] Respiratory Rate 23 22 22 Blood Pressure 149/101 H 135/94 H 150/105 H Blood Pressure [Right Arm] Blood Pressure Mean [Right Arm] 02 Sat by Pulse Oximetry Oxygen Delivery Method 06/08/25 17:31 Temperature Temperature Source Pulse Rate Pulse Rate [Right] Respiratory Rate 17 Blood Pressure 151/99 H Blood Pressure [Right Arm] Blood Pressure Mean [Right Arm] 02 Sat by Pulse Oximetry Oxygen Delivery Method Lab Data Lab Results 06/08/25 15:25: WBC 11.8 H, RBC 5.58, Hgb 17.4, Hct 51.3, MCV 91.9, MCH 31.2, MCHC 33.9, RDW 12.4, Plt Count 327, MPV 9.0, Neut % (Auto) 84.6 H, Lymph % (Auto) 10.6, [place] % (Auto) 3.5, Eos % (Auto) 0.2, Baso % (Auto) 0.7, Neut # (Auto) 10.0 H, Lymph # (Auto) 1.3, [place] # (Auto) 0.4, Eos # (Auto) 0.0, Baso # (Auto) 0.1, Total Counted 100, Neutrophils % (Manual) 83 H, Lymphocytes % (Manual) 15, Monocytes % (Manual) 2, Platelet Estimate Normal, Giant Platelets 1+, Poikilocytosis 1+, Target Cells 1+, Sodium 137, Potassium 4.3, Chloride 104, Carbon Dioxide 25, Anion Gap 12.3, BUN 18, Creatinine 0.90, Estimated Creat Clear 108, Estimated GFR 90, Est GFR ( Amer) 109, Glucose 124 H, Calcium 9.8, Total Bilirubin 0.5, AST 33, ALT 30, Alkaline Phosphatase 100, Troponin I < 0.01, Total Protein 8.0, Albumin 4.9, Globulin 3.1, Albumin/Globulin Ratio 1.6, Lipase 100 06/08/25 15:25 06/08/25 15:25 Orders (Tests/Meds): ED MEDICATIONS Discontinued Medications Generic Name Dose Route Start Last Admin Trade Name Freq PRN Reason Stop Dose Admin Diphenhydramine HCl 25 mg 06/08/25 15:17 06/08/25 15:28 Diphenhydramine 50mg/Ml Vial IV 06/08/25 15:18 25 mg ONCE ONE Administration Droperidol 2.5 mg 06/08/25 15:17 06/08/25 15:28 Droperidol 5mg/2ml Vial IV 06/08/25 15:18 2.5 mg ONCE ONE Administration Lidocaine HCl 10 ml 06/08/25 17:34 Lidocaine 1% 10ml Mdv SUBCUT 06/08/25 17:35 ONCE ONE ORDERS Category Date Time Status CBC Man Diff [Complete Blood Count Man Dif] Stat Lab 06/08/25 15:25 Completed CMP [Comprehensive Metabolic Panel] Stat Lab 06/08/25 15:25 Completed Lipase Stat Lab 06/08/25 15:25 Completed Troponin I Stat Lab 06/08/25 15:25 Completed ECG Data Tracing #1: I reviewed this ECG and interpreted as documented below: 1. EKG personally read by me demonstrates normal sinus rhythm with a rate of 70 bpm, normal axis, no VA prolongation, narrow QRS, no QTc prolongation. No ST elevation or depression. No overt signs of ischemia or arrhythmia. There is significant artifact in lead V2. We will obtain a repeat EKG HEART Score History (anamnesis): Slightly suspicious ECG: Normal Age: 45-65 years Risk factors: No known risk factors Troponin: </= normal limit HEART Score: 1 Medical Decision Narrative: In summary, this is a 50-year-old male patient who is presenting to the emergency department today for evaluation of nausea and vomiting onset at 11 AM this morning in the setting of a periapical abscess that has had very minimal responsiveness to amoxicillin and Augmentin over the past 3 weeks. Comorbidities include daily marijuana use which may be exacerbating the patient's symptoms. On initial evaluation of the patient he was actively vomiting but was hemodynamically stable, saturating well on room air, and neurologically intact. On examination the patient does have a periapical abscess with fluctuance present over the gumline of the left maxillary posterior molar. There were dental caries present in this tooth as well. Heart and lungs are clear to auscultation bilaterally. Abdomen is soft nontender to palpation. Differential diagnosis includes adverse reaction to Augmentin, cannabis hyperemesis syndrome, electrolyte derangement, acute kidney injury, pancreatitis, ACS/[place], among others. Workup was initiated with an EKG as well as hematologic labs. Initial interventions included 2.5 mg of droperidol IV as well as 25 mg of IV Benadryl. Please see EKG interpretation above. Labs personally interpreted by me demonstrate no actionable abnormalities. No significant electrolyte derangements and no evidence of acute kidney injury. The patient's initial troponin is less than 0.01. His symptoms onset 4 hours ago so we will not obtain a second troponin. After treatment with droperidol and Benadryl the patient was reassessed and he is resting comfortably and is in no acute distress. His nausea and vomiting is completely resolved and he appears much improved. I informed the patient that he could be experiencing cannabis hyperemesis syndrome given that he has used cannabis for a long-term period of time, we have discussed cessation of use of cannabis for this reason. Additionally, I have explored the possibility of the patient having an adverse reaction to Augmentin however he states he has had this medication before without complications so this is less likely. I have offered to drain the patient's periapical abscess noted on the left posterior maxillary molar, however he states that he would feel more comfortable with dentistry doing this and he has an appointment set up with dentistry on June 19 for them to extract the tooth and drain the abscess. He would not like to undergo 2 dental procedures and has elected to forego drainage of the periapical abscess today. We will have the patient continue on Augmentin and take Zofran at home every 8 hours for nausea or vomiting. At this time all questions have been answered and all parties are agreeable with the decision to discharge home. Critical Care Critical Care Time Critical Care Time: No
--- NOTE | 2025-06-08 15:31 | PC.NURSE ---
115 FSBS. RN Notified
[2025-06-08 15:35] LABS: Hematocrit 51.3 % (42.0-52.0); Hemoglobin 17.4 g/dL (14.1-18.0); Mean Corpuscular HGB Conc 33.9 g/dL (31.8-35.4); Mean Corpuscular Hemoglobin 31.2 pg (27.0-31.2); Mean Corpuscular Volume 91.9 fl (80-94); Platelet Count 327 K/mm3 (142-424); Red Blood Count 5.58 M/mm3 (4.60-6.20); White Blood Count 11.8 K/mm3 (4.8-10.8)
[2025-06-08 16:24] LABS: Albumin Level 4.9 g/dl (3.5-5.0); Chloride 104 mmol/L (98-107); Potassium 4.3 mmoL/L (3.5-5.1); Sodium 137 mmol/L (136-145)
[2025-06-08 16:27] LABS: Alanine Aminotransferase 30 U/L (12-78); Albumin/Globulin Ratio 1.6 (1.1-1.8); Alkaline Phosphatase 100 U/L (38-126); Anion Gap 12.3 mEq/L (5-15); Aspartate Amino Transferase 33 U/L (17-59); Bilirubin,Total 0.5 mg/dl (0.2-1.3); Blood Urea Nitrogen 18 mg/dl (9-20); Carbon Dioxide 25 mmol/L (22.0-30.0); Creatinine Clearance Estimated 108 mL/min (50-200); Creatinine,Serum 0.90 mg/dl (0.66-1.25); Estimated Glomerular Filt Rate 90 ml/min (>60); GFR (African American) 109 ML/MIN (>60); Globulin 3.1 g/dL (1.3-3.2); Lipase 100 U/L (23-300); Total Protein,Serum 8.0 g/dl (6.3-8.2)
[2025-06-08 16:28] LABS: Calcium 9.8 mg/dl (8.4-10.2); Glucose 124 mg/dl (74-100)
[2025-06-08 16:43] LABS: Troponin I < 0.01 ng/ml (0.00-0.034)
[2025-06-08 16:58] LABS: Total Cells Counted 100
[2025-06-08 16:59] LABS: Giant Platelets 1+
[2025-06-08 17:00] LABS: Poikilocytosis 1+; Target Cells 1+
== END 2025-06-08 18:01 | disposition home or self-care (01) ==
PROVIDERS: Emergency Provider Student in an Organized Health Care Education/Training Program
DX: R11.2 Nausea with vomiting, unspecified (principal); K04.7 Periapical abscess without sinus; F17.210 Nicotine dependence, cigarettes, uncomplicated
CPT/HCPCS: 80053; 83690; 84484; 85007; 85014; 85018; 85048; 85049; 93005; 96374; 96375; 99284; J1200; J1790